=== PATIENT | female | born 1980 | race Caucasian/White ===

== ENCOUNTER 2021-08-23 16:42 | Emergency (ER) | payer MEDICAID, SELFPAY ==
[2021-08-23 16:52] VITALS: BP 151/93; PULSE 110; RESP 18; TEMP 36.1; O2SAT 97; BMI 24.9
--- NOTE | 2021-08-23 17:03 | PC.NURSE ---
PT SEEN DRINKING NIP IN TRIAGE CHAIR BY PCT
[2021-08-23 17:17] LABS: MANUAL DIFF FLAG NO
[2021-08-23 17:19] LABS: Basophils Absolute Auto 0.1 X10*3/uL (0.0-0.2); Basophils Percent Auto 0.9 % (0-2); Eosinophils Percent Auto 0.3 % (0-4); Hematocrit 41.6 % (37.0-47.0); Hemoglobin 13.8 g/dl (12.0-16.0); Imm Gran Abs Auto 0.06 X10*3/uL (0.00-0.03); Imm Gran Pct Auto 0.6 % (0.0-0.4); Lymphocytes Percent Auto 18.8 % (20-40); Mean Corpuscular HGB Conc 33.2 g/dl (31.0-35.0); Mean Corpuscular Volume 96.5 fL (80.0-98.0); Mean Platelet Volume 8.4 fL (9.4-12.3); Monocytes Absolute Auto 0.6 X10*3/uL (0.1-1.2); Monocytes Percent Auto 6.2 % (2-11); Neutrophils Absolute Auto 7.6 x10*3/uL (2.0-8.3); Neutrophils Percent Auto 73.2 % (45-73); Platelet Count 357 X10*3/uL (160-400); Red Blood Count 4.31 X10*6/uL (4.20-5.50); Red Cell Distribution Width 17.3 % (11.0-16.0); White Blood Count 10.4 X10*3/uL (4.8-10.8)
[2021-08-23 17:20] LABS: Appearance Urine CLEAR; Color Urine STRAW; Glucose Urine UA NEG (NEG); Leukocyte Esterase Urine NEG (NEG); Nitrite Urine NEG (NEG); Specific Gravity - Urine <= 1.005 (1.005-1.025); Urine Blood NEG (NEG); Urine Ketones NEG (NEG); Urine Protein NEG (NEG-TRACE)
[2021-08-23 17:32] LABS: Ethanol 399 mg/dL
[2021-08-23 17:35] LABS: Alanine Aminotransferase 38 U/L (0-31); Albumin Level 4.7 g/dL (3.5-5.0); Alkaline Phosphatase 96 U/L (39-117); Amphetamine Screen Urine Not Detected (Not Detect); Anion Gap 15 (12-20); Aspartate Amino Transferase 34 U/L (5-31); Barbiturates, Urine Not Detected (Not Detect); Benzodiazepines Screen Urine POSITIVE (Not Detect); Bilirubin Direct < 0.2 mg/dL (0.0-0.5); Bilirubin Total 0.3 mg/dL (0.0-1.0); Blood Urea Nitrogen 9 mg/dL (9-16); Calcium 10.2 mg/dL (8.4-10.2); Cannabinoid Screen Urine Not Detected (Not Detect); Carbon Dioxide 26 mmol/L (22-29); Chloride 110 mmol/L (96-108); Cocaine Screen Urine Not Detected (Not Detect); Creatinine Clr Calc Pharmacy 66.5; Estimated Glomerular Filt Rate 58; Fentanyl, urine Not Detected (Not Detect); Glucose Random 120 mg/dL (60-115); Lipase 93 U/L (8-78); Opiate Screen Urine Not Detected (Not Detect); Phencyclidine Screen Urine Not Detected (Not Detect); Potassium 4.3 mmol/L (3.3-5.1); Sodium 147 mmol/L (135-145); Total Protein 8.3 g/dL (6.5-8.0)
--- NOTE | 2021-08-23 18:03 | PC.NURSE ---
Call from [facility] who states pt was supposed to go there however upon transfer family sent pt here. Pt can call [facility] tomorrow morning after being medically cleared to check for bed availability phone [phone] ext [phone]. Primary RN.
--- NOTE | 2021-08-23 18:12 | ED.ALCOHOL ---
HPI - Alcohol General Chief Complaint: ETOH/Substance Use Stated Complaint: med clearance Time Seen by Provider: 08/23/21 18:00 Source: patient Mode of arrival: ambulatory Limitations: other (Patient agitated in evidently intoxicated.) History of Present Illness HPI narrative: 41-year-old female past medical history significant for alcohol abuse presenting to the emergency department with acute alcohol intoxication. According to patient her last drink was just prior to her arrival. She tells me she drinks 30-40 nips of alcohol a day. She tells me it is usually hard liquor. She tells me she has had about 15 today. 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 She tells me she is trying to quit. Patient walked into the emergency department herself. Patient denies SI and HI. Denies visual, auditory and tactile hallucinations. Denies drugs, tobacco. Limited history due to patient being agitated, screaming at staff members, punching, refusing to answer all questions. MD complaint: alcohol intoxication Last drink: Just prior to admission Chronic alcohol use: Yes Previous visits for alcohol intoxication: No Recent trauma: No Associated symptoms: denies other symptoms Treatments prior to arrival: none Related Data Allergies Allergy/AdvReac Type Severity Reaction Status Date / Time No Known Allergies Allergy Verified 08/23/21 16:52 Review of Systems Review of Systems: Constitutional : No Fever, No Chills ENT/Mouth : No sore throat, No Rhinorrhea Eyes: No Eye Pain, No Swelling, No Redness Cardiovascular : No Chest Pain, No SOB Respiratory : No Cough, No Sputum Gastrointestinal : No Nausea, No Vomiting, No Diarrhea, No abdominal Pain Genitourinary : No Dysuria, No Hematuria Musculoskeletal : No joint pain, No Myalgias, No Joint Swelling Skin : No Skin Lesions, No rash Neuro : No Weakness, No Numbness Psych : No Anxiety, No Depression, No SI/HI/AH/VH All other systems reviewed and are negative Yes all other systems are reviewed and are negative [facility] Past Medical History Attestation statement: The following information was validated with the patient. Source: old records reviewed and nursing notes reviewed Medical History (Updated 08/24/21 @ 00:22 by JAZMINE Stevenson) ETOH abuse Pancreatitis Social History Social History Advance Directives: No Advance Directives Information Provided: No Physical Exam ED Vital Signs: Vital Signs - 24 hr 08/23/21 16:52 08/23/21 22:00 Temperature 97 F 98.4 F Pulse Rate 110 H 93 Respiratory Rate 18 16 Blood Pressure 151/93 H 134/84 Pulse Oximetry 97 99 BMI result Body Mass Index 24.9 Patient noted to be slightly tachycardic likely secondary to agitation. Appearance: Alert.? Oriented X3.? No acute distress.? Patient's smells like ethanol. Head: Normocephalic, atraumatic, no step-offs or deformities Eyes: Pupils equal, round and reactive to light.? ENT: Pharynx normal.? No tongue fasciculations Neck: Normal inspection.? Neck supple.? CVS: Normal heart rate and rhythm.? Pulses normal.? Respiratory: No respiratory distress.? Breath sounds normal.? Abdomen: Soft and nontender.? Negative caput medusa Skin: Skin warm and dry.? Normal skin color.? Normal skin turgor.? Extremities: No lower extremity edema.? No calf ttp. 5/5 strength to bilateral upper and lower extremities. No asterixis noted. Back: No midline tenderness, no C-spine tenderness, full range of motion, no CVA tenderness bilaterally Neuro: Oriented X 3.? No motor deficit.? No sensory deficit. CN 2-12 intact Course Reevaluation(s) Reevaluation #1: Patient eating and drinking. CBC within normal limits. Chemistry with no acute electrolyte abnormalities that require intervention. Transaminases slightly elevated likely secondary to alcohol abuse. Lipase 93 however not consistent with pancreatitis. Patient has no pain to palpation of abdomen. Urine clean. Urine toxicology positive for benzos. Ethanol 399. Patient received some fluids. However stopped fluids due to patient's sodium level. Patient has a bed at at [facility]. Will betito go ther in the AM they need to be called at [phone] ext [phone] Patient, cooperative. At this time she will be placed in physician observation to allow more time for placement at [facility]. A time-out observation or started patient, cooperative no acute distress. Will continue to monitor. Time: 00:21 MDM - Alcohol MDM Narrative Medical decision making narrative: 1750 41 yo f presents w/ acute alcohol intoxication. Tells me she has a history of alcohol withdrawal seizures. Has been admitted for these in the past at other hospitals. Denies SI and HI. Physical examination benign. No signs of autonomic dysfunction at this time. Patient's heart rates noted to be elevated likely secondary to agitation. Plan at this time is medical clearance, patient will get IV fluids and Ativan prophylactic for seizures. Medical Records Attestation: I reviewed the patient's medical records. Lab Data Attestation: I reviewed the patient's lab results. Result diagrams: 08/23/21 17:11 08/23/21 17:11 Labs: Lab Results 08/23/21 08/23/21 08/23/21 Range/Units 17:11 17:11 17:11 WBC 10.4 (4.8-10.8) X10*3/uL RBC 4.31 (4.20-5.50) X10*6/uL Hgb 13.8 (12.0-16.0) g/dl Hct 41.6 (37.0-47.0) % MCV 96.5 (80.0-98.0) fL MCH 32.0 (27.0-33.0) pg MCHC 33.2 (31.0-35.0) g/dl RDW 17.3 H (11.0-16.0) % Plt Count 357 (160-400) X10*3/uL MPV 8.4 L (9.4-12.3) fL Immature Gran % (Auto) 0.6 H (0.0-0.4) % Neut % (Auto) 73.2 H (45-73) % Lymph % (Auto) 18.8 L (20-40) % [place] % (Auto) 6.2 (2-11) % Eos % (Auto) 0.3 (0-4) % Baso % (Auto) 0.9 (0-2) % Lymph # (Auto) 2.0 (1.2-4.9) X10*3/uL [place] # (Auto) 0.6 (0.1-1.2) X10*3/uL Eos # (Auto) 0.0 (0.0-0.4) X10*3/uL Baso # (Auto) 0.1 (0.0-0.2) X10*3/uL Abs Immat Gran (auto) 0.06 H (0.00-0.03) X10*3/uL Absolute Neuts (auto) 7.6 (2.0-8.3) x10*3/uL Absolute Nucleated RBC 0.000 (0.0-0.012) X10*3/uL Nucleated RBC % (auto) 0.0 (0.0-0.2) /100WBC Sodium 147 H (135-145) mmol/L Potassium 4.3 (3.3-5.1) mmol/L Chloride 110 H (96-108) mmol/L Carbon Dioxide 26 (22-29) mmol/L Anion Gap 15 (12-20) BUN 9 (9-16) mg/dL Creatinine 1.05 (0.5-1.4) mg/dL Estim Creat Clear Calc 66.5 Estimated GFR 58 Random Glucose 120 H (60-115) mg/dL Calcium 10.2 (8.4-10.2) mg/dL Total Bilirubin 0.3 (0.0-1.0) mg/dL Direct Bilirubin < 0.2 (0.0-0.5) mg/dL AST 34 H (5-31) U/L ALT 38 H (0-31) U/L Alkaline Phosphatase 96 (39-117) U/L Total Protein 8.3 H (6.5-8.0) g/dL Albumin 4.7 (3.5-5.0) g/dL Lipase 93 H (8-78) U/L Urine Color Urine Appearance Urine pH (5.0-8.0) Ur Specific [place] (1.005-1.025) Urine Protein (NEG-TRACE) MG/DL Urine Glucose (UA) (NEG) MG/DL Urine Ketones (NEG) MG/DL Urine Blood (NEG) Urine Nitrite (NEG) Ur Leukocyte Esterase (NEG) Urine Opiates Screen (Not Detect) Urine Fentanyl Screen (Not Detect) Ur Barbiturates Screen (Not Detect) Ur Phencyclidine Scrn (Not Detect) Ur Amphetamines Screen (Not Detect) U Benzodiazepines Scrn (Not Detect) Urine Cocaine Screen (Not Detect) U Marijuana (THC) Screen (Not Detect) Ethyl Alcohol 399 H* mg/dL 08/23/21 08/23/21 Range/Units 17:11 17:11 WBC (4.8-10.8) X10*3/uL RBC (4.20-5.50) X10*6/uL Hgb (12.0-16.0) g/dl Hct (37.0-47.0) % MCV (80.0-98.0) fL MCH (27.0-33.0) pg MCHC (31.0-35.0) g/dl RDW (11.0-16.0) % Plt Count (160-400) X10*3/uL MPV (9.4-12.3) fL Immature Gran % (Auto) (0.0-0.4) % Neut % (Auto) (45-73) % Lymph % (Auto) (20-40) % [place] % (Auto) (2-11) % Eos % (Auto) (0-4) % Baso % (Auto) (0-2) % Lymph # (Auto) (1.2-4.9) X10*3/uL [place] # (Auto) (0.1-1.2) X10*3/uL Eos # (Auto) (0.0-0.4) X10*3/uL Baso # (Auto) (0.0-0.2) X10*3/uL Abs Immat Gran (auto) (0.00-0.03) X10*3/uL Absolute Neuts (auto) (2.0-8.3) x10*3/uL Absolute Nucleated RBC (0.0-0.012) X10*3/uL Nucleated RBC % (auto) (0.0-0.2) /100WBC Sodium (135-145) mmol/L Potassium (3.3-5.1) mmol/L Chloride (96-108) mmol/L Carbon Dioxide (22-29) mmol/L Anion Gap (12-20) BUN (9-16) mg/dL Creatinine (0.5-1.4) mg/dL Estim Creat Clear Calc Estimated GFR Random Glucose (60-115) mg/dL Calcium (8.4-10.2) mg/dL Total Bilirubin (0.0-1.0) mg/dL Direct Bilirubin (0.0-0.5) mg/dL AST (5-31) U/L ALT (0-31) U/L Alkaline Phosphatase (39-117) U/L Total Protein (6.5-8.0) g/dL Albumin (3.5-5.0) g/dL Lipase (8-78) U/L Urine Color STRAW Urine Appearance CLEAR Urine pH 6.0 (5.0-8.0) Ur Specific [place] <= 1.005 (1.005-1.025) Urine Protein NEG (NEG-TRACE) MG/DL Urine Glucose (UA) NEG (NEG) MG/DL Urine Ketones NEG (NEG) MG/DL Urine Blood NEG (NEG) Urine Nitrite NEG (NEG) Ur Leukocyte Esterase NEG (NEG) Urine Opiates Screen Not Detected (Not Detect) Urine Fentanyl Screen Not Detected (Not Detect) Ur Barbiturates Screen Not Detected (Not Detect) Ur Phencyclidine Scrn Not Detected (Not Detect) Ur Amphetamines Screen Not Detected (Not Detect) U Benzodiazepines Scrn POSITIVE H (Not Detect) Urine Cocaine Screen Not Detected (Not Detect) U Marijuana (THC) Screen Not Detected (Not Detect) Ethyl Alcohol mg/dL Critical Care Time Critical Care Time Critical Care Time: No Discharge Plan Discharge Clinical Impression: Alcoholic intoxication Patient Disposition: Still a Patient
[2021-08-23] MEDS: 0.9 % Sodium Chloride 1,000 ML 999 ML IV (19:04)
[2021-08-23] MEDS: LORazepam 2 MG/ML VIAL 1 MG IVPUSH (19:28)
[2021-08-23 22:00] VITALS: BP 134/84; PULSE 93; RESP 16; TEMP 36.9; O2SAT 99
--- NOTE | 2021-08-24 00:25 | PC.NURSE ---
Plan for [facility] in the morning. RN to call for bed availability [phone] ext [phone].
[2021-08-24] MEDS: diphenhydrAMINE HCL 25 MG TABLET 50 MG PO ×2 (00:31→23:50)
[2021-08-24] MEDS: Melatonin 3 MG TABLET PO ×2 (00:31→23:50)
[2021-08-24 00:37] VITALS: PULSE 88; RESP 16; TEMP 36.6; O2SAT 97; BMI 24.0
[2021-08-24 01:46] LABS: COVID-19 Test Negative (Negative)
--- NOTE | 2021-08-24 02:40 | PC.NURSE ---
PT is in bed resting this shift and is being monitored by staff. PT on CIWA, current score 1.
--- NOTE | 2021-08-24 07:15 | PC.NURSE ---
patient appears to remain asleep at present respirations are even and unlabored patient appears in no distress
--- NOTE | 2021-08-24 08:22 | PHA.MEDREC ---
Pharmacy Consult ? Medication Reconciliation Pharmacy has completed the medication reconciliation.
--- NOTE | 2021-08-24 10:02 | MHC.RECOVSUP ---
Recovery Support note: Patient is a 41 year old [place]andan speaking female who presented to [facility] ED under the influence of alcohol. Patient had a bed at [facility] on 08/23 however was too intoxicated to go to the facility. This news writer met with patient on 08/24 to discuss treatment options. Patient was asleep but awoke easily and continues to express interest in going to [facility]. Patient information faxed to [facility] by this news writer. This news writer awaits follow-up from [facility].
[2021-08-24 10:47] VITALS: BP 136/97; PULSE 86; RESP 18; TEMP 36.7; O2SAT 97
[2021-08-24] MEDS: LORazepam 1 MG TABLET PO (11:47)
[2021-08-24] MEDS: DULoxetine HCl 30 MG CAPSULE.DR PO ×2 (13:58→20:07)
[2021-08-24] MEDS: Nicotine 21 MG PATCH.TD24 TRANSDERMA (16:37)
--- NOTE | 2021-08-24 16:41 | MHC.RECOVSUP ---
Recovery Support note: Patient referred to [facility] and accepted for admission. Intake time 2100. Patient to be transported via Ly[employer]. Cymbalta prescription sent to [facility] in [place] and will be delivered to the facility. Suboxone will be provided by the facility while patient is in treatment. Discussed with patient the importance of contacting her provider while in treatment to discuss prescriptions. Discussed case with CARE Team and ED provider.
[2021-08-24] MEDS: LORazepam 1 MG TABLET 2 MG PO (17:48)
[2021-08-24 18:02] VITALS: BP 127/87; PULSE 75; RESP 20; TEMP 37.1; O2SAT 98
[2021-08-24] MEDS: Buprenorphine/Naloxone 8/2 mg FILM 1 FILM SUBLINGUAL (20:07)
--- NOTE | 2021-08-25 01:33 | PC.NURSE ---
Pt requested meds to help her sleep, stated that the meds she took last night were effective. Orders for benadryl 50 mg and melatonin 3 mg obtained, pt medicated per JUL at 2350; pt currently laying in bed, appears to be asleep.
[2021-08-25 05:41] VITALS: BP 151/102; PULSE 88; RESP 17; TEMP 36.7; O2SAT 98
[2021-08-25] MEDS: chlordiazePOXIDE HCl 25 MG CAPSULE PO (06:06)
[2021-08-25 09:11] VITALS: BP 132/91; PULSE 71; O2SAT 97
[2021-08-25] MEDS: Buprenorphine/Naloxone 8/2 mg FILM 1 FILM SUBLINGUAL (09:15)
[2021-08-25] MEDS: diazePAM 2 MG TABLET 1 MG PO (09:15)
[2021-08-25] MEDS: DULoxetine HCl 30 MG CAPSULE.DR PO (09:15)
[2021-08-25] MEDS: Triamcinolone Acet 0.5 % Cream 15 GM TUBE 1 APPL TOPICAL (09:25)
== END 2021-08-25 10:21 | disposition other institution (70) ==
PROVIDERS: Emergency Provider Emergency Medicine
DX: F10.129 Alcohol abuse with intoxication, unspecified (principal); Y90.8 Blood alcohol level of 240 mg/100 ml or more; Z71.41 Alcohol abuse counseling and surveillance of alcoholic; Z20.822 Contact with and (suspected) exposure to COVID-19; Z79.899 Other long term (current) drug therapy
CPT/HCPCS: 36415; 80048; 80076; 80307; 81003; 82077; 83690; 85025; 87635; 96361; 96374; 99284; 99285; J2060; Q0163

== ENCOUNTER 2023-03-09 14:45 | Emergency (ER) | payer MEDICAID, SELFPAY ==
--- NOTE | ~2023-03-09 | CT_ITS ---
EXAMINATION: CT HEAD WITHOUT CONTRAST CLINICAL INFORMATION: Seizure; head injury. COMPARISON: None available. TECHNIQUE: Contiguous axial imaging was performed from the skull base to vertex without intravenous administration of contrast. This CT examination was performed using dose optimization techniques as appropriate, variously including the following: *Automated exposure control *Adjustment of mA and/or kV according to patient size (this includes techniques or standardized protocols for targeted exams where dose is matched to indication/reason for exam; i.e. extremities or head) *Use of iterative reconstruction technique DLP: 579 mGy-cm FINDINGS: There is no acute intracranial hemorrhage or evidence of territorial infarction. No abnormal mass effect or midline shift is seen. Ge to white matter differentiation is well preserved. There is no abnormal attenuation within the brain parenchyma. The ventricles are normal in size. No extra-axial fluid collections are identified. The calvarium and scalp soft tissues are normal. The middle ear cavity and mastoid air cells are clear. The visualized paranasal sinuses are clear. CT/CT head/brain wo IV con IMPRESSION: No acute intracranial pathology.
[2023-03-09 14:59] VITALS: BP 158/90; PULSE 118; O2SAT 96
[2023-03-09 15:09] VITALS: BP 146/89; PULSE 101; RESP 16; TEMP 36.6; O2SAT 92; BMI 23.6
--- NOTE | 2023-03-09 15:15 | ECG_ITS ---
Test Reason : SEIZURE Blood Pressure : / mmHG Vent. Rate : 102 BPM Atrial Rate : 102 BPM P-R Int : 142 ms QRS Dur : 090 ms QT Int : 400 ms P-R-T Axes : 078 072 040 degrees QTc Int : 521 ms Sinus tachycardia RSR' or QR pattern in V1 suggests right ventricular conduction delay Nonspecific T wave abnormality Inferior leads Prolonged QT Abnormal ECG No previous ECGs available Referred By: Generic ED Physician Electronically Signed By:LULY DIETRICH MD
--- NOTE | 2023-03-09 15:30 | PC.NURSE ---
20gIV placed in left AC w/o complications - labs drawn/urine obtained and sent to lab. tech currently doing ekg at this time. pt resting in no apparent distress in the stretcher. respirations even and unlabored.
[2023-03-09 15:37] LABS: MANUAL DIFF FLAG NO
[2023-03-09 15:39] LABS: Basophils Absolute Auto 0.1 X10*3/uL (0.0-0.2); Eosinophils Absolute Auto 0.1 X10*3/uL (0.0-0.4); Eosinophils Percent Auto 1.2 % (0-4); Hematocrit 38.7 % (37.0-47.0); Hemoglobin 13.7 g/dl (12.0-16.0); Imm Gran Abs Auto 0.02 X10*3/uL (0.00-0.03); Imm Gran Pct Auto 0.3 % (0.0-0.4); Lymphocytes Absolute Auto 1.3 X10*3/uL (1.2-4.9); Lymphocytes Percent Auto 16.9 % (20-40); Mean Corpuscular HGB Conc 35.4 g/dl (31.0-35.0); Mean Corpuscular Hemoglobin 34.1 pg (27.0-33.0); Mean Corpuscular Volume 96.3 fL (80.0-98.0); Mean Platelet Volume 8.9 fL (9.4-12.3); Monocytes Absolute Auto 0.4 X10*3/uL (0.1-1.2); Monocytes Percent Auto 5.3 % (2-11); Neutrophils Absolute Auto 5.9 x10*3/uL (2.0-8.3); Neutrophils Percent Auto 75.3 % (45-73); Platelet Count 311 X10*3/uL (160-400); Red Blood Count 4.02 X10*6/uL (4.20-5.50); Red Cell Distribution Width 15.2 % (11.0-16.0); White Blood Count 7.8 X10*3/uL (4.8-10.8)
[2023-03-09 15:44] LABS: Appearance Urine Cloudy; Color Urine Dark Yellow; Glucose Urine UA Negative (Negative); Leukocyte Esterase Urine Negative (Negative); Nitrite Urine Negative (Negative); PH 5.5 (5.0-9.0); Specific Gravity - Urine 1.025 (1.005-1.025); UMIC TRIGGER UACC YES; Urine Blood Trace (Negative); Urine Ketones 15 mg/dL (Negative); Urine Protein 100 (2+) mg/dL (Neg-Trace)
--- OUTSIDE RECORDS SUMMARY | 2023-03-09 15:52 | XMS_ITS | Continuity of Care Document ---
Author Name Unknown Organization [facility] Address [address] [place] [address]- Care Team Providers Care Web Applications Programmer Name Role Phone Bonita LIMA, Abdias Angela Primary Care Physician Encounter [facility] Date(s): 11/23/19 - 12/23/19 [facility] [address] [address]- [facility] Attending Physician: Jason Wallis Admitting Physician: AdmJason torrez Referring Physician: AdmtrJason Allergies, Adverse Reactions, Alerts Substance Reaction Severity Status codeine hives Active Wellbutrin Active Immunizations Given and Recorded Vaccine Date Status Refusal Reason pneumococcal 23-valent vaccine 1 03/23/18 Given influenza virus vaccine, inactivated 02/25/18 Gold rded tetanus/diphtheria/pertussis, acel(Tdap) 2 08/11/11 Given 1Result Comment: [03/23/2018] [facility]# [id number] 2Admin Note: information sheet 06/04/2011 Medications clonazePAM 1 mg oral tablet 1 tablet = 1 mg, By Mouth, 2 times a day, 0 Refills, Maintenance, 10/17/19 14:52:00 EDT, Tablet Start Date: 10/17/19 Status: Ordered Flonase 50 mcg/inh nasal spray 1 sprays, Nares, Both, Daily in AM, # 15.8 mL, 2 Refills, Maintenance, 11/01/19 11:09:00 EDT, [place], [facility], 1 sprays Nares, Both Daily in AM, 163, cm, 11/01/19 10:51:00 EDT, Height, 66.8, kg, 10/17/19 18:51:00 EDT, Dry Weight Start Date: 11/01/19 Status: Ordered Lexapro 20 mg oral tablet 1 tablet = 20 mg, By Mouth, Daily, 0 Refills, Maintenance, 03/11/19 14:54:16 EDT Start Date: 03/11/19 Status: Ordered Nicotine = 14 mg, Topically, Daily, 0 Refills, Maintenance, 10/21/19 10:51:00 EDT, Patch Start Date: 10/21/19 Status: Ordered omega-3 polyunsaturated fatty acids 667 mg with Vitamin D oral capsule 1 capsule, By Mouth, Daily, # 120 capsule, 0 Refills, Maintenance, 10/17/19 14:53:00 EDT, Capsule Start Date: 10/17/19 Status: Ordered ProAir HFA 90 mcg/inh inhalation aerosol with adapter 2, puffs, Inhalation, 4 times a day, PRN, # 18 Gm, Refills 5, Tot. Refills 5, Maintenance, 199:52:09 EDT, Route to Pharmacy Electronically, [id number], [id number] Start Date: 09/28/18 Status: Ordered Suboxone 8 mg-2 mg sublingual film 2 tablets, Sublingual, Daily, 0 Refills, Maintenance, 07/16/18 9:49:35 EST Start Date: 07/16/18 Status: Ordered Problem List Condition Effective Dates Status Health Status Inform ant Alcohol abuse(Confirmed) Active Depression(Confirmed) Active Asthma, mild intermittent(Confirmed) Active Opiate abuse, episodic(Confirmed) Active Opiate dependence(Confirmed) Active Psoriasis(Confirmed) Active Psoriatic arthritis(Confirmed) Active Tobacco abuse(Confirmed) Active Social History Social History Type Response Tobacco Use: 4 or less cigar ettes(less than 1/4 pack)/day in last 30 days. Sex
--- OUTSIDE RECORDS SUMMARY | 2023-03-09 15:52 | XMS_ITS | Continuity of Care Document ---
Author Name Unknown Organization [facility] Address [address] [place] [address]- Care Team Providers Care Trap Operator Name Role Phone Bonita LIMA, Abdias Angela Primary Care Physician Encounter [facility] Date(s): 10/17/19 - 10/21/[address] [address]- [facility] Discharge Disposition: A-D/C Home Attending Physician: Eveline Chang MD Admitting Physician: Leena Santa MD Referring Physician: Ildefonso Hoffmann MD Allergies, Adverse Reactions, Alerts Substance Reaction Severity Status codeine hives Active Wellbutrin Active Immunizations Given and Recorded Vaccine Date Status Refusal Reason pneumococcal 23-valent vaccine 1 03/23/18 Given influenza virus vaccine, inactivated 02/25/18 Gold rded tetanus/diphtheria/pertussis, acel(Tdap) 2 08/11/11 Given 1Result Comment: [03/23/2018] [facility]# [id number] 2Admin Note: information sheet 06/04/2011 Medications clonazePAM 1 mg oral tablet 1 tablet = 1 mg, By Mouth, 2 times a day, 0 Refills, Maintenance, 10/17/19 14:52:00 EDT, Tablet Start Date: 10/17/19 Status: Ordered Lexapro 20 mg oral tablet 1 tablet = 20 mg, By Mouth, Daily, 0 Refills, Maintenance, 03/11/19 14:54:16 EDT Start Date: 03/11/19 Status: Ordered magnesium oxide 400 mg oral tablet 1 tablet = 400 mg, By Mouth, 2 times a day, for 7 days, # 14 tablet, 0 Refills, Acute 10/28/19 11:03:00 EDT, 06/11/20 11:03:00 EDT, [place], [facility], 163, cm, 10/21/19 4:30:00 EDT, Height, 66.8, kg, 10/17/19 18:51:00 EDT, Dry Weight Start Date: 10/21/19 Stop Date: 10/28/19 Status: Ordered Nicotine = 14 mg, Topically, Daily, 0 Refills, Maintenance, 10/21/19 10:51:00 EDT, Patch Start Date: 10/21/19 Status: Ordered omega-3 polyunsaturated fatty acids 667 mg with Vitamin D oral capsule 1 capsule, By Mouth, Daily, # 120 capsule, 0 Refills, Maintenance, 10/17/19 14:53:00 EDT, Capsule Start Date: 10/17/19 Status: Ordered oxyCODONE 5 mg oral capsule 1 capsule = 5 mg, By Mouth, Every 6 hours, PRN for pain, # 12 capsule, 0 Refills, Acute 10/22/19 10:52:00 EDT, 10/21/19 10:51:00 EDT, Capsule, [facility], Partial fill upon patientrequest, 163, cm, 10/21/19 4:30:00 EDT, Height, 66.8, k... Start Date: 10/21/19 Stop Date: 10/22/19 Status: Ordered ProAir HFA 90 mcg/inh inhalation aerosol with adapter 2, puffs, Inhalation, 4 times a day, PRN, # 18 Gm, Refills 5, Tot. Refills 5, Maintenance, 199:52:09 EDT, Route to Pharmacy Electronically, [id number], [id number] Start Date: 09/28/18 Status: Ordered Suboxone 8 mg-2 mg sublingual film 2 tablets, Sublingual, Daily, 0 Refills, Maintenance, 07/16/18 9:49:35 EST Start Date: 07/16/18 Status: Ordered triamcinolone 0.5% topical cream 1 application, Topically, 2 times a day, for 30 days, # 20 Gm, 2 Refills, Acute 11/18/19 12:01:00 EDT, 08/20/19 12:01:00 EDT, Cream, [facility], 1 application Topically 2 times a day,x30 days, 163, cm, 03/11/19 14:50:00 EDT, Height, 59,... Start Date: 08/20/19 Stop Date: 11/18/19 Status: Ordered Tylenol 325 mg oral tablet 650 mg, 2, tablet, By Mouth, Every 6 hours, PRN, Refills 0, Maintenance, Pain , Mild Temperature Headache, 10/21/19 10:51:00 EDT Start Date: 10/21/19 Status: Ordered Problem List Condition Effective Dates Status Health Status Inform ant Alcohol abuse(Confirmed) Active Depression(Confirmed) Active Asthma, mild intermittent(Confirmed) Active Opiate abuse, episodic(Confirmed) Active Opiate dependence(Confirmed) Active Psoriasis(Confirmed) Active Psoriatic arthritis(Confirmed) Active Tobacco abuse(Confirmed) Active Vital Signs Most recent to oldest [Reference Range]: 1 2 3 Height 163 cm (10/21/19 4:30 AM) 163 cm (10/20/19 8:16 PM) 163 cm (10/20/19 5:03 AM) Weight 66.8 kg (10/17/19 5:03 PM) 64 kg (10/17/19 9:40 AM) Oxygen Saturation [94-100 %] 96 % (10/21/19 4:30 AM) 97 % (10/20/19 8:16 PM) 97 % (10/20/19 2:00 PM) Pulse Rate [55-90 bpm] 64 bpm (10/21/19 4:30 AM) 59 bpm (10/20/19 8:16 PM) 64 bpm (10/20/19 2:00 PM) Body Mass Index [18.5-24.99] 25.14 *H* (10/17/19 5:03 PM) Blood Pressure [90-138/55-84 mm Hg] 151/77mm Hg *H* (10/21/19 4:30 AM) 151/85mm Hg *H* (10/20/19 8:16 PM) 142/73mm Hg *H* (10/20/19 2:00 PM) Respiratory Rate [16-30 br/min] 17 br/min (10/21/19 9:27 AM) 18 br/min (10/21/19 8:57 AM) 16 br/min (10/21/19 5:15 AM) Temperature [96.8-100.4 DegF] 97.7 DegF (10/21/19 4:30 AM) 98.0 DegF (10/20/19 8:16 PM) 97.6 DegF (10/20/19 2:00 PM) Liters per Minute 0 L/min (10/18/19 8:00 PM) 0 L/min (10/18/19 6:17 AM) Mode of Delivery (Oxygen) Room air (10/21/19 4:30 AM) Room air (10/20/19 8:16 PM) Room air (10/20/19 2:00 PM) Blood pressure sites Arm, right (10/21/19 4:30 AM) Arm, right (10/20/19 8:16 PM) Arm, right (10/20/19 2:00 PM) Temperature Route Temporal (10/21/19 4:30 AM) Temporal (10/20/19 8:16 PM) Temporal (10/20/19 2:00 PM) Dry Weight 66.8 kg (10/17/19 5:03 PM) 64 kg (10/17/19 9:40 AM) Weight Obtained Via Standing scale (10/17/19 9:40 AM) Dry Weight Obtained Via Standing scale (10/17/19 9:40 AM) Social History Social History Type Response Smoking Status 10 or more cigarette s (1/2 pack or more)/day in last 30 days; Tobacco user in household: No; Other: 1/2 ppd; entered on: 10/17/19 Sex
--- OUTSIDE RECORDS SUMMARY | 2023-03-09 15:52 | XMS_ITS | Continuity of Care Document ---
Author Name Unknown Organization [facility] Address [address] [address]- Care Team Providers Care Agronomy Instructor Name Role Phone Not on Staff, PCP Primary Care Physician Unavail able Encounter [facility] Date(s): 11/15/22 - 12/15/22 [facility] [address] [place] [address] Allergies, Adverse Reactions, Alerts Substance Reaction Severity Status codeine hives Active Wellbutrin Active Immunizations Given and Recorded Vaccine Date Status Refusal Reason pneumococcal 23-valent vaccine 1 03/23/18 Given influenza virus vaccine, inactivated 02/25/18 Gold rded tetanus/diphtheria/pertussis, acel(Tdap) 2 08/11/11 Given 1Result Comment: [03/23/2018] [facility]# [id number] 2Admin Note: information sheet 06/04/2011 Medications clonazePAM 1 mg oral tablet 1 tablet = 1 mg, By Mouth, 2 times a day, 0 Refills, Maintenance, 10/17/19 14:52:00 EDT, Tablet Start Date: 10/17/19 Status: Ordered Flonase 50 mcg/inh nasal spray 1 sprays, Nares, Both, Daily in AM, # 15.8 mL, 2 Refills, Maintenance, 11/01/19 11:09:00 EDT, [place], [facility], 1 sprays [...] Maintenance, 199:52:09 EDT, Route to Pharmacy Electronically, [id number], [id number] Start Date: 09/28/18 Status: Ordered Suboxone 8 mg-2 mg sublingual film 2 tablets, Sublingual, Daily, 0 Refills, Maintenance, 07/16/18 9:49:35 EST Start Date: 07/16/18 Status: Ordered Problem List Condition Confirmation Course Effective Dates Status Health St atus Informant Alcohol abuse Confirmed Active Depression Confirmed Active Asthma, mild intermittent Confirmed Active Opiate abuse, episodic Confirmed Active Opiate dependence Confirmed Active Psoriasis Confirmed Active Psoriatic arthritis Confirmed Active Tobacco abuse Confirmed Active Social History Social History Type Response Tobacco Use: 4 or less cigar ettes(less than 1/4 pack)/day in last 30 days. Sex Patient Care team information Care Team Personnel Name: Not on Staff, PCP Position: [facility] Physician (General Medicine) Member Role: PCP Name: Sigrid Lomeli RN Position: [facility] sr. merchandise planner Member Role: Primary Care Nurse Care Team Related Persons Name: VAISHNAVI CLAIRE Address: home [address] [place] [address] Name: KRISTY SCHWAB Address: home [address] [place], [place] Name: JCARLOS SCHWAB Address: [address] [place] [address]
--- OUTSIDE RECORDS SUMMARY | 2023-03-09 15:52 | XMS_ITS | Continuity of Care Document ---
Author Name Unknown Organization [facility] Address [address] [place] [address]- Care Team Providers Care Pumper Gauger Name Role Phone Bonita LIMA, Abdias Angela Primary Care Physician Encounter [facility] Date(s): 11/16/19 - 12/16/[address] [address]- [facility] Attending Physician: Jason Wallis Admitting Physician: Jason Wallis Referring Physician: AdmtrJason Allergies, Adverse Reactions, Alerts Substance Reaction Severity Status codeine hives Active Wellbutrin Active Immunizations Given and Recorded Vaccine Date Status Refusal Reason pneumococcal 23-valent vaccine 1 03/23/18 Given influenza virus vaccine, inactivated 02/25/18 Gold rded tetanus/diphtheria/pertussis, acel(Tdap) 2 08/11/11 Given 1Result Comment: [03/23/2018] [facility]# [id number] 2Admin Note: information sheet 06/04/2011 Medications clonazePAM 1 mg oral tablet 1 tablet = 1 mg, By Mouth, 2 times a day, 0 Refills, Maintenance, 10/17/19 14:52:00 EDT, Tablet Start Date: 10/17/19 Status: Ordered Flonase 50 mcg/inh nasal spray 1 sprays, Nares, Both, Daily in AM, # 15.8 mL, 2 Refills, Maintenance, 11/01/19 11:09:00 EDT, [place], [facility], 1 sprays [...] Maintenance, 199:52:09 EDT, Route to Pharmacy Electronically, [id number], [facility]/pharmacy #1230 Start Date: 09/28/18 Status: Ordered [...]
--- OUTSIDE RECORDS SUMMARY | 2023-03-09 15:52 | XMS_ITS | Continuity of Care Document ---
Author Name Unknown Organization [facility] [place] Address [address] [place] [address]- Care Team Providers Care Can Striper Name Role Phone Bonita LIMA, Abdias Angela Primary Care Physician Encounter [facility] Date(s): 08/06/19 - 08/16/19 [facility] [address] [address]- [facility] Attending Physician: Jason Wallis Admitting Physician: AdmJason torrez Referring Physician: AdmtrJason Allergies, Adverse Reactions, Alerts Substance Reaction Severity Status codeine hives Active Immunizations Given and Recorded Vaccine Date Status Refusal Reason pneumococcal 23-valent vaccine 1 03/23/18 Given influenza virus vaccine, inactivated 02/25/18 Gold rded tetanus/diphtheria/pertussis, acel(Tdap) 2 08/11/11 Given 1Result Comment: [03/23/2018] [facility]# [id number] 2Admin Note: information sheet 06/04/2011 Medications acamprosate 333 mg oral delayed release tablet 2 tablet = 666 mg, By Mouth, 3 times a day, # 180 tablet, 5 Refills, Maintenance, 08/05/18 15:52:20EDT, EC Tablet Start Date: 08/05/18 Stop Date: 02/01/19 Status: Ordered Clonazepam By Mouth, 3 times a day, 0 Refills, Maintenance Start Date: 08/02/10 Status: Ordered Flovent HFA 110 mcg/inh inhalation aerosol 2 puffs, Inhalation, 2 times a day, # 1 each, 11 Refills, Maintenance, 03/23/18 14:21:26 EST, Aerosol Start Date: 03/23/18 Stop Date: 03/18/19 Status: Ordered Lexapro 20 mg oral tablet 1 tablet = 20 mg, By Mouth, Daily, 0 Refills, Maintenance, 03/11/19 14:54:16 EDT Start Date: 03/11/19 Status: Ordered ProAir HFA 90 mcg/inh inhalation aerosol with adapter 2, puffs, Inhalation, 4 times a day, PRN, # 18 Gm, Refills 5, Tot. Refills 5, Maintenance, :52:09 EDT, Route to Pharmacy Electronically, [id number], [facility]/pharmacy #1230 Start Date: 09/28/18 Status: Ordered Suboxone 8 mg-2 mg sublingual film 2 tablets, Sublingual, Daily, 0 Refills, Maintenance, 07/16/18 9:49:35 EST Start Date: 07/16/18 Status: Ordered triamcinolone 0.5% topical cream 1 application, Topically, 2 times a day, for 14 days, # 15 Gm, 0 Refills, Acute 08/20/19 12:01:00 EDT, 08/06/19 12:01:00 EDT, [place], [facility], 1 application Topically 2 times a day,x14 days, 163, cm, 03/11/19 14:50:00 EDT, Height, 59,... Start Date: 08/06/19 Stop Date: 08/20/19 Status: Ordered Problem List Condition Effective Dates Status Health Status Inform ant Alcohol abuse(Confirmed) Active Depression(Confirmed) Active Asthma, mild intermittent(Confirmed) Active Opiate abuse, episodic(Confirmed) Active Psoriasis(Confirmed) Active Psoriatic arthritis(Confirmed) Active Tobacco abuse(Confirmed) Active Social History Social History Type Response Smoking Status 10 or more cigarette s (1/2 pack or more)/day in last 30 days; Tobacco user in household: No entered on: 03/11/19 Sex
--- OUTSIDE RECORDS SUMMARY | 2023-03-09 15:52 | XMS_ITS | Continuity of Care Document ---
Author Name Unknown Organization [facility] [place] Address [address] [place] [address]- Care Team Providers Care Head Of Research & Insights Name Role Phone Bonita LIMA, Abdias Angela Primary Care Physician Encounter [facility] Date(s): 09/07/19 - 10/07/19 [facility] [address] [address]- [facility] Attending Physician: Jason Wallis Admitting Physician: AdmJason torrez Referring Physician: AdmtrJason Allergies, Adverse Reactions, Alerts Substance Reaction Severity Status codeine hives Active Immunizations Given and Recorded Vaccine Date Status Refusal Reason pneumococcal 23-valent vaccine 1 03/23/18 Given influenza virus vaccine, inactivated 02/25/18 Gold rded tetanus/diphtheria/pertussis, acel(Tdap) 2 08/11/11 Given 1Result Comment: [03/23/2018] [facility]# [id number] 2Admin Note: information sheet 06/04/2011 Medications acamprosate [...] Maintenance, :52:09 EDT, Route to Pharmacy Electronically, [id number], [facility]/pharmacy #1230 Start Date: 09/28/18 Status: Ordered Suboxone [...] Date: 08/20/19 Stop Date: 11/18/19 Status: Ordered Vitamin D3 1000 intl units oral tablet 1 tablet = 1,000 International_Units, By Mouth, Daily, # 90 tablet, 2 Refills, Maintenance, 09/07/19 10:24:00 EDT, Tablet, [facility], 163, cm, 03/11/19 14:50:00 EDT, Height, 59, kg, 01/26/19 19:32:00 EDT, Dry Weight Start Date: 09/07/19 Stop Date: 06/03/20 Status: Ordered Problem List Condition Effective Dates Status Health Status Inform ant Alcohol abuse(Confirmed) Active Depression(Confirmed) Active Asthma, mild intermittent(Confirmed) Active Opiate abuse, episodic(Confirmed) Active Psoriasis(Confirmed) Active Psoriatic arthritis(Confirmed) Active Tobacco abuse(Confirmed) Active Social History Social History Type Response Smoking Status or more cigarette s (1/2 pack or more)/day in last 30 days; Tobacco user in household: No entered on: 03/11/19 Sex
--- OUTSIDE RECORDS SUMMARY | 2023-03-09 15:52 | XMS_ITS | Continuity of Care Document ---
Author Name Unknown Organization [facility] [place] Address [address] [place] [address]- Care Team Providers Care Gastroenterology Technician Name Role Phone Abdias Mesa MD Primary Care Phys[id number] Date(s[facility] 08/06/19 - 08/13/19 [facility] [place] [address] [place] [address]- [facility] Attending Physician: Abdias Mesa MD Allergies, Adverse Reactions, Alerts Substance Reaction Severity Status codeine hives Active Immunizations Given and Recorded Vaccine Date Status Refusal Reason pneumococcal 23-valent vaccine 1 03/23/18 Given influenza virus vaccine, inactivated 02/25/18 Gold rded tetanus/diphtheria/pertussis, acel(Tdap) 2 08/11/11 Given 1Result Comment: [03/23/2018] [facility]# [id number] 2Admin Note: information sheet 06/04/2011 Medications acamprosate [...] Maintenance, :52:09 EDT, Route to Pharmacy Electronically, [id number], [facility]/pharmacy #1230 Start Date: 09/28/18 Status: Ordered [...]
--- OUTSIDE RECORDS SUMMARY | 2023-03-09 15:52 | XMS_ITS | Continuity of Care Document ---
Author Name Unknown Organization [facility] [place] Address [address] [place] [address]- Care Team Providers Care Director Of Digital Technology Name Role Phone Abdias Mesa MD Primary Care Physician En[facility] [id number] Date(s): 09/07/19 - 09/14/19 [facility] [place] [address] [place] [address]- [facility] Attending Physician: Abdias Mesa MD Allergies, Adverse Reactions, Alerts Substance Reaction Severity Status codeine hives Active Immunizations Given and Recorded Vaccine Date Status Refusal Reason pneumococcal 23-valent vaccine 1 03/23/18 Given influenza virus vaccine, inactivated 02/25/18 Gold rded tetanus/diphtheria/pertussis, acel(Tdap) 2 08/11/11 Given 1Result Comment: [03/23/2018] [facility]# [id number] 2Admin Note: information sheet 06/04/2011 Medications acamprosate 333 mg oral delayed release tablet 2 tablet = 666 mg, By Mouth, 3 times a day, # 180 tablet, 5 Refills, Maintenance, 08/05/18 15:52:20EDT, EC Tablet Start Date: 08/05/18 Stop Date: 02/01/19 Status: Ordered clobetasol 0.05% topical cream 1 application, Topically, 2 times a day, # 45 Gm, 1 Refills, Acute 10/07/19 10:24:00 EDT, 09/07/19 10:24:00 EDT, Cream, [facility], 1 application Topically 2 times a day, 163, cm, 03/11/19 14:50:00 EDT, Height, 59, kg, 01/26/19 19:32:00... Start Date: 09/07/19 Stop Date: 10/07/19 Status: Ordered Clonazepam By Mouth, 3 times [...] Maintenance, 199:52:09 EDT, Route to Pharmacy Electronically, [id number], [facility]/pharmacy #1230 Start Date: 09/28/18 Status: Ordered Suboxone [...]
--- OUTSIDE RECORDS SUMMARY | 2023-03-09 15:52 | XMS_ITS | Continuity of Care Document ---
Author Name Unknown Organization [facility] Address [address] [place] [address]- Care Team Providers Care Php Engineer Name Role Phone Bonita LIMA, Abdias Angela Primary Care Physician Encounter [facility] Date(s): 04/27/19 - [facility]07/[facility] [address] [address] [facility] Attending Physician: Jason Wallis Admitting Physician: AdmJason torrez Referring Physician: AdmtrJason Allergies, Adverse Reactions, Alerts Substance Reaction Severity Status codeine hives Active Immunizations Given and Recorded Vaccine Date Status Refusal Reason pneumococcal 23-valent vaccine 1 03/23/18 Given influenza virus vaccine, inactivated 02/25/18 Gold rded tetanus/diphtheria/pertussis, acel(Tdap) 2 08/11/11 Given 1Result Comment: [03/23/2018] [facility]# [id number] 2Admin Note: information sheet 06/04/2011 Medications acamprosate [...] Maintenance, 199:52:09 EDT, Route to Pharmacy Electronically, [id number], [facility]/pharmacy #1230 Start Date: 09/28/18 Status: Ordered [...]
--- OUTSIDE RECORDS SUMMARY | 2023-03-09 15:52 | XMS_ITS | Continuity of Care Document ---
Author Name Unknown Organization [facility] Address [address] [place] [address]- Care Team Providers Care Head Of Sales And Marketing Name Role Phone Abdias Mesa MD Primary Care Physician Encounter [facility] N[facility] [id number] Date(s): 03/11/19 - 05/12/19 [facility] [place] [address] [place] [address]- [facility] Attending Physician: Abdias Mesa MD Allergies, Adverse Reactions, Alerts Substance Reaction Severity Status codeine hives Active Immunizations Given and Recorded Vaccine Date Status Refusal Reason pneumococcal 23-valent vaccine 1 03/23/18 Given influenza virus vaccine, inactivated 02/25/18 Gold rded tetanus/diphtheria/pertussis, acel(Tdap) 2 08/11/11 Given 1Result Comment: [03/23/2018] [facility]NOTE 3]# [id number] 2Admin Note: information sheet 06/04/2011 Medications acamprosate [...] Maintenance, 199:52:09 EDT, Route to Pharmacy Electronically, [id number], [facility]/pharmacy #1230 Start Date: 09/28/18 Status: Ordered [...]
--- OUTSIDE RECORDS SUMMARY | 2023-03-09 15:52 | XMS_ITS | Continuity of Care Document ---
Author Name Unknown Organization [facility] [place] Address [address] [place] [address]- Care Team Providers Care Sand Screener Name Role Phone Abdias Mesa MD Primary Care Phys[id number] Date(s): 11/01/19 - 12/23/19 [facility] [place] [address] [place] [address]- [facility] Attending Physician: Abdias Mesa MD Allergies, Adverse Reactions, Alerts Substance Reaction Severity Status codeine hives Active Wellbutrin Active Immunizations Given and Recorded Vaccine Date Status Refusal Reason pneumococcal 23-valent vaccine 1 03/23/18 Given influenza virus vaccine, inactivated 02/25/18 Gold rded tetanus/diphtheria/pertussis, acel(Tdap) 2 08/11/11 Given 1Result Comment: [03/23/2018] [facility]# [id number] 2Admin Note: information sheet 06/04/2011 Medications clonazePAM 1 mg oral tablet 1 tablet = 1 mg, By Mouth, 2 times a day, 0 Refills, Maintenance, 10/17/19 14:52:00 EDT, Tablet Start Date: 10/17/19 Status: Ordered Flonase 50 mcg/inh nasal spray 1 sprays, Nares, Both, Daily in AM, # 15.8 mL, 2 Refills, Maintenance, 11/01/19 11:09:00 EDT, [place], [facility], 1 sprays [...] Maintenance, 199:52:09 EDT, Route to Pharmacy Electronically, [id number], [facility]/pharmacy #1230 Start Date: 09/28/18 Status: Ordered [...]
--- OUTSIDE RECORDS SUMMARY | 2023-03-09 15:52 | XMS_ITS | Continuity of Care Document ---
Author Name Unknown Organization [facility] [place] Address [address] [place] [address]- Care Team Providers Care Ambulance Mechanic Name Role Phone Abdias Mesa MD Primary [facility] Phys[id number] Date(s[facility] 11/01/19 - 11/08/19 [facility] [place] [address] [place] [address]- [facility] Attending Physician: Abdias Mesa MD Allergies, Adverse Reactions, Alerts Substance Reaction Severity Status codeine hives Active Wellbutrin Active Immunizations Given and Recorded Vaccine Date Status Refusal Reason pneumococcal 23-valent vaccine 1 03/23/18 Given influenza virus vaccine, inactivated 02/25/18 Godl rded tetanus/diphtheria/pertussis, acel(Tdap) 2 08/11/11 Given 1Result Comment: [03/23/2018] [facility]# [id number] 2Admin Note: information sheet 06/04/2011 Medications clobetasol 0.05% topical cream 1 application, Topically, 2 times a day, # 45 Gm, 1 Refills, Acute 11/15/19 11:09:00 EDT, 11/01/19 11:09:00 EDT, [place], [facility], 1 application Topically 2 times a day, 163, cm, 11/01/19 10:51:00 EDT, Height, 66.8, kg, 10/17/19 18:51:... Start Date: 11/01/19 Stop Date: 11/15/19 Status: Ordered clonazePAM 1 mg oral tablet 1 tablet = 1 mg, By Mouth, 2 times a day, 0 Refills, Maintenance, 10/17/19 14:52:00 EDT, Tablet Start Date: 10/17/19 Status: Ordered Flonase 50 mcg/inh nasal spray 1 sprays, Nares, Both, Daily in AM, # 15.8 mL, 2 Refills, Maintenance, 11/01/19 11:09:00 EDT, [place], [facility], 1 sprays [...] Maintenance, 199:52:09 EDT, Route to Pharmacy Electronically, [id number], [facility]/pharmacy #1230 Start Date: 09/28/18 Status: Ordered [...] Most recent to oldest [Reference Range]: 1 Height 163 cm (11/01/19 10:51 AM) Weight 64.4 kg (11/01/19 10:51 AM) Oxygen Saturation [94-100 %] 96 % (11/01/19 10:51 AM) Pulse Rate [55-90 bpm] 64 bpm (11/01/19 10:51 AM) Body Mass Index [18.5-24.99] 24.24 (11/01/19 10:51 AM) Blood Pressure [90-138/55-84 mm Hg] 110/ 70mm Hg (11/01/19 10:51 AM) Liters per Minute 0 L/min (11/01/19 10:51 AM) Mode of Delivery (Oxygen) Room air (11/01/19 10:51 AM) Blood pressure sites Arm, right (11/01/19 10:51 AM) Weight Obtained Via Standing scale (11/01/19 10:51 AM) Social History Social History Type Response Tobacco Use: 4 or less cigar ettes(less than 1/4 pack)/day in last 30 days. Sex
--- OUTSIDE RECORDS SUMMARY | 2023-03-09 15:52 | XMS_ITS | Continuity of Care Document ---
Author Name Unknown Organization [facility] Address [address] [place] [address]- Care Team Providers Care Food And Beverage Server Name Role Phone Abdias Mesa MD Primary Care Physician Encounter [facility] [id number] Date(s): 04/22/19 - 05/27/[facility] [place] [address] [place] [address]- [facility] Attending Physician: Abdias Mesa MD Allergies, Adverse Reactions, Alerts Substance Reaction Severity Status codeine hives Active Immunizations Given and Recorded Vaccine Date Status Refusal Reason pneumococcal 23-valent vaccine 1 03/23/18 Given influenza virus vaccine, inactivated 02/25/18 Gold rded tetanus/diphtheria/pertussis, acel(Tdap) 2 08/11/11 Given 1Result Comment: [03/23/2018] [facility]# [id number] 2Admin Note: information sheet 06/04/2011 Medications acamprosate [...] Maintenance, 199:52:09 EDT, Route to Pharmacy Electronically, [id number], [facility]/pharmacy #1230 Start Date: 09/28/18 Status: [...]
--- OUTSIDE RECORDS SUMMARY | 2023-03-09 15:52 | XMS_ITS | Continuity of Care Document ---
Author Name Unknown Organization [facility] Address [address] [place] [address]- Care Team Providers Care Line Assembler Name Role Phone Bonita LIMA, Abdias Angela Primary Care Physician Encounter [facility] NBR [id number] Date(s): 11/01/19 - 12/16/19 [facility] [address] [place] [address]- [facility] Attending Physician: Lito LIMA, Aidan Allergies, Adverse Reactions, Alerts Substance Reaction Severity Status codeine hives Active Wellbutrin Active Immunizations Given and Recorded Vaccine Date Status Refusal Reason pneumococcal 23-valent vaccine 1 03/23/18 Given influenza virus vaccine, inactivated 02/25/18 Gold rded tetanus/diphtheria/pertussis, acel(Tdap) 2 08/11/11 Given 1Result Comment: [03/23/2018] [facility]# [id number] 2Admin Note: information sheet 06/04/2011 Medications clonazePAM 1 mg oral tablet 1 tablet = 1 mg, By Mouth, 2 times a day, 0 Refills, Maintenance, 10/17/19 14:52:00 EDT, Tablet Start Date: 10/17/19 Status: Ordered Flonase 50 mcg/inh nasal spray 1 sprays, Nares, Both, Daily in AM, # 15.8 mL, 2 Refills, Maintenance, 11/01/19 11:09:00 EDT, [place], [facility], 1 sprays [...] Maintenance, 199:52:09 EDT, Route to Pharmacy Electronically, [id number], [facility]/pharmacy #1230 Start Date: 09/28/18 Status: Ordered [...]
[2023-03-09 15:56] LABS: Anion Gap 20 (12-20); Blood Urea Nitrogen 11 mg/dL (9-16); Calcium 9.8 mg/dL (8.4-10.2); Carbon Dioxide 21 mmol/L (22-29); Chloride 103 mmol/L (96-108); Creatinine Clr Calc Pharmacy 93.8; Estimated Glomerular Filt Rate > 60; Glucose Random 127 mg/dL (60-115); Magnesium 1.5 mg/dL (1.6-2.6); Potassium 3.2 mmol/L (3.3-5.1); Sodium 141 mmol/L (135-145)
[2023-03-09 15:58] LABS: Bacteria Urine Trace (None Seen); RBC Urine 0-2 /HPF (0-2); WBC Urine 0-5 /HPF (0-5)
[2023-03-09 16:04] LABS: Ethanol < 10 mg/dL
--- NOTE | 2023-03-09 16:26 | PC.NURSE ---
pt increasingly lethargic at this time. when speaking w/ pt - pt seems to fall asleep easily/unable to answer questions. pt easily arousable to verbal stimuli at this time . pt states that she is just tired. states last drink was yesterday (03/08) where she consumed 1/2 a sleeve of nips. pt denies any other substance use at this time. respirations even and unlabored.
--- NOTE | 2023-03-09 16:31 | PC.NURSE ---
CIWA = 6
--- NOTE | 2023-03-09 16:31 | ED.GENADULT ---
HPI - General Adult General Chief complaint: Seizure Stated complaint: WITNESSED SEIZURE,PER EMS Time Seen by Provider: 03/09/23 16:27 Source: patient Mode of arrival: EMS Limitations: no limitations History of Present Illness HPI narrative: Patient alcoholic with history of alcohol withdrawal seizure was at [employer] last drink last night ,did not drink all day today had seizure lasted for few minutes patient hit her head to the ground patient does not remember has small lower lip bite. No fever no neck pain no vomiting patient was postictal after seizure now back to normal Related Data Home Medications Medication Instructions Recorded Confirmed betamethasone dipropionate 0.05 % 1 appl topical DAILY 08/24/21 08/24/21 topical cream buprenorphine 8 mg-naloxone 2 mg 1 strip sublingual BID 08/24/21 08/24/21 sublingual film (Suboxone) diazepam 5 mg tablet 1 tab PO DAILY 08/24/21 08/24/21 duloxetine 30 mg capsule,delayed 1 cap PO BID 08/24/21 08/24/21 release Previous Rx's Medication Instructions Recorded duloxetine 30 mg capsule,delayed 30 mg PO BID #14 caps 08/24/21 release (Cymbalta) lorazepam 1 mg tablet (Ativan) 1 mg PO Q4-6H PRN alcohol 03/09/23 withdrawal #14 tabs Allergies Allergy/AdvReac Type Severity Reaction Status Date / Time No Known Allergies Allergy Verified 08/23/21 16:52 Review of Systems Review of Systems: Yes all other systems are reviewed and are negative PMFSH Past Medical History Medical History Pancreatitis ETOH abuse Social History Social History Alcohol intake: current Alcohol intake frequency: 3 or more drinks per day Alcohol type: hard liquor Smoked in Last 30 Days: Yes Use of substances other than those prescribed or required for medical reasons: No Advance Directives: No Advance Directives Information Provided: No Patient : No Physical Exam ED Vital Signs: Vital Signs - 24 hr 03/09/23 15:09 03/09/23 17:08 03/09/23 19:36 Temperature 97.9 F 97.5 F Pulse Rate 101 H 98 93 Respiratory Rate 16 17 16 Blood Pressure 146/89 H 136/80 140/86 H Pulse Oximetry 92 98 98 Oxygen Delivery Method Room Air Room Air Room Air 03/10/23 00:11 03/10/23 00:54 Temperature Pulse Rate 124 H 104 H Respiratory Rate 17 Blood Pressure 140/96 H Pulse Oximetry 96 98 Oxygen Delivery Method Room Air BMI result Body Mass Index 23.6 Appearance: Alert. Oriented X3. No acute distress. Eyes: PERRLA, No Nystagmus HEENT: Pharynx normal. Oral Mucosa moist atraumatic normocephalic no tongue bite small lower lip bite Neck: Normal inspection. Neck supple. CVS: Normal heart rate and rhythm. Pulses normal. Respiratory: No respiratory distress. Equal air entry bilateral, Abdomen: Soft and nontender. Bowel sounds are present, Skin: Skin warm and dry. Normal skin color. Normal skin turgor. Extremities: No lower extremity edema. No calf tenderness Neuro: Oriented X 3. No motor deficit. No sensory deficit.No cerebellar signs , cranial nerves II-XII intact Medications Administered Discontinued Medications Generic Name Dose Route Start Last Admin Trade Name Freq PRN Reason Stop Dose Admin Magnesium Sulfate 2 gm in 50 mls @ 150 mls/hr 03/09/23 16:38 03/09/23 17:48 Magnesium Sulfate/H2o IV 03/09/23 16:57 Infused ONCE ONE Infusion Lorazepam 1 mg 03/09/23 16:38 03/09/23 17:28 Lorazepam 2 Mg/Ml Vial IVPUSH 03/09/23 16:39 1 mg ONCE ONE Administration Lorazepam 1 mg 03/10/23 00:08 03/10/23 00:19 Lorazepam 2 Mg/Ml Vial IVPUSH 03/10/23 00:09 1 mg STAT STA Administration Potassium Bicarbonate 25 meq 03/09/23 16:38 03/09/23 17:29 Potassium Bicarbonate/Cit Ac 25 Meq Tablet.Eff PO 03/09/23 16:39 25 meq ONCE ONE Administration Medical Decision Making Medical Decision Making [facility] Narrative: Patient with likely alcohol withdrawal seizure with history of same in the past refused to go for detox received Ativan in the ER feeling much better now discharge patient home on Ativan p.o. Differential Diagnosis Differential Diagnoses: The differential diagnosis associated with the presentation includes Epilepsy/alcohol withdrawal seizure Lab Data [facility] Lab Attestation statement: I reviewed the patient's lab results. 03/09/23 15:27 03/09/23 15:27 Labs: Lab Results 03/09/23 Range/Units 15:27 WBC 7.8 (4.8-10.8) X10*3/uL RBC 4.02 L (4.20-5.50) X10*6/uL Hgb 13.7 (12.0-16.0) g/dl Hct 38.7 (37.0-47.0) % MCV 96.3 (80.0-98.0) fL MCH 34.1 H (27.0-33.0) pg MCHC 35.4 H (31.0-35.0) g/dl RDW 15.2 (11.0-16.0) % Plt Count 311 (160-400) X10*3/uL MPV 8.9 L (9.4-12.3) fL Immature Gran % (Auto) 0.3 (0.0-0.4) % Neut % (Auto) 75.3 H (45-73) % Lymph % (Auto) 16.9 L (20-40) % [place] % (Auto) 5.3 (2-11) % Eos % (Auto) 1.2 (0-4) % Baso % (Auto) 1.0 (0-2) % Lymph # (Auto) 1.3 (1.2-4.9) X10*3/uL [place] # (Auto) 0.4 (0.1-1.2) X10*3/uL Eos # (Auto) 0.1 (0.0-0.4) X10*3/uL Baso # (Auto) 0.1 (0.0-0.2) X10*3/uL Abs Immat Gran (auto) 0.02 (0.00-0.03) X10*3/uL Absolute Neuts (auto) 5.9 (2.0-8.3) x10*3/uL Absolute Nucleated RBC 0.000 (0.0-0.012) X10*3/uL Nucleated RBC % (auto) 0.0 (0.0-0.2) /100WBC Sodium 141 (135-145) mmol/L Potassium 3.2 L D (3.3-5.1) mmol/L Chloride 103 (96-108) mmol/L Carbon Dioxide 21 L (22-29) mmol/L Anion Gap 20 (12-20) BUN 11 (9-16) mg/dL Creatinine 0.71 (0.5-1.4) mg/dL Estim Creat Clear Calc 93.8 Estimated GFR > 60 Random Glucose 127 H (60-115) mg/dL Calcium 9.8 (8.4-10.2) mg/dL Magnesium 1.5 L (1.6-2.6) mg/dL Total Bilirubin 0.8 (0.0-1.0) mg/dL Direct Bilirubin 0.2 (0.0-0.5) mg/dL AST 22 (5-31) U/L ALT 10 (0-31) U/L Alkaline Phosphatase 77 (39-117) U/L Total Protein 7.7 (6.5-8.0) g/dL Albumin 4.5 (3.5-5.0) g/dL Lipase 23 (8-78) U/L Urine Color Dark Yellow Urine Appearance Cloudy Urine pH 5.5 (5.0-9.0) Ur Specific [place] 1.025 (1.005-1.025) Urine Protein 100 (2+) H (Neg-Trace) mg/dL Urine Glucose (UA) Negative (Negative) mg/dL Urine Ketones 15 (Negative) mg/dL Urine Blood Trace H (Negative) Urine Nitrite Negative (Negative) Ur Leukocyte Esterase Negative (Negative) Urine RBC 0-2 (0-2) /HPF Urine WBC 0-5 (0-5) /HPF Ur Squamous Epith Cells 11-20 (0-2) /HPF Urine Bacteria Trace (None Seen) Hyaline Casts 3-5 (0-2) /LPF Ethyl Alcohol < 10 mg/dL Discharge Plan Discharge Clinical Impression: Alcohol withdrawal seizure Patient Disposition: Home, Self-Care Instructions: Alcohol Withdrawal (ED) Additional Instructions: If seizures likely from alcohol withdrawal Stop drinking alcohol Take Ativan as prescribed for withdrawal seizure Follow-up with detox Prescriptions: New lorazepam [Ativan] 1 mg tablet 1 mg PO Q4-6H PRN (Reason: alcohol withdrawal) Qty: 14 0RF No Action betamethasone dipropionate 0.05 % cream 1 appl topical DAILY diazepam 5 mg tablet 1 tab PO DAILY buprenorphine-naloxone [Suboxone] 8-2 mg film 1 strip sublingual BID duloxetine 30 mg capsule,delayed release(DR/EC) 1 cap PO BID duloxetine [Cymbalta] 30 mg capsule,delayed release(DR/EC) 30 mg PO BID Qty: 14 0RF
[2023-03-09 17:08] VITALS: BP 136/80; PULSE 98; RESP 17; TEMP 36.4; O2SAT 98
[2023-03-09 17:16] LABS: Alanine Aminotransferase 10 U/L (0-31); Albumin Level 4.5 g/dL (3.5-5.0); Alkaline Phosphatase 77 U/L (39-117); Aspartate Amino Transferase 22 U/L (5-31); Bilirubin Direct 0.2 mg/dL (0.0-0.5); Bilirubin Total 0.8 mg/dL (0.0-1.0); Lipase 23 U/L (8-78); Total Protein 7.7 g/dL (6.5-8.0)
[2023-03-09] MEDS: LORazepam 2 MG/ML VIAL 1 MG IVPUSH (17:28)
[2023-03-09] MEDS: Magnesium Sulfate/H2O 2 GM/50 ML PIGGYBACK IV (17:28)
[2023-03-09] MEDS: Potassium Bicarbonate/Cit AC 25 MEQ TABLET.EFF PO (17:29)
--- NOTE | 2023-03-09 18:20 | PC.NURSE ---
pt currently sleeping at this time. pt seems to be in no apparent distress at this moment. respirations remain even and unlabored.
[2023-03-09 19:36] VITALS: BP 140/86; PULSE 93; RESP 16; O2SAT 98
--- NOTE | 2023-03-09 19:40 | PC.NURSE ---
updated CIWA = 4.
--- NOTE | 2023-03-09 21:44 | PC.NURSE ---
assumed care of pt, pt resting calmly on [place] with seizure pads in place
--- NOTE | 2023-03-09 21:54 | PC.NURSE ---
pt not interested in detox at this time . let provider know
--- NOTE | 2023-03-10 00:01 | PC.NURSE ---
ambulate with steady gait
[2023-03-10 00:11] VITALS: BP 140/96; PULSE 124; RESP 17; O2SAT 96
--- NOTE | 2023-03-10 00:13 | PC.NURSE ---
AT discharge pt HR was 124, let provider know and we plan to initiate CIWA and administration of fluids and PO Ativan. Pt will stay for treatment however at this time declines detox
[2023-03-10] MEDS: LORazepam 2 MG/ML VIAL 1 MG IVPUSH (00:19)
[2023-03-10 00:54] VITALS: PULSE 104; O2SAT 98
[2023-03-10 05:03] VITALS: BP 126/86; PULSE 90; RESP 17; O2SAT 96
[2023-03-10] MEDS: LORazepam 1 MG TABLET 2 MG PO (05:08)
== END 2023-03-10 05:30 | disposition home or self-care (01) ==
PROVIDERS: Emergency Provider Internal Medicine; PCP Family Medicine
DX: F10.239 Alcohol dependence with withdrawal, unspecified (principal); R00.0 Tachycardia, unspecified; Y90.0 Blood alcohol level of less than 20 mg/100 ml; R51.9 Headache, unspecified; R56.9 Unspecified convulsions; Z79.899 Other long term (current) drug therapy
CPT/HCPCS: 36415; 70450; 80048; 80076; 80307; 81001; 83690; 83735; 85025; 93005; 96365; 96376; 99285; J2060; J3475